=== PATIENT | female | born 1970 | race Caucasian/White ===

== ENCOUNTER 2025-03-25 19:50 | Emergency (ER) | payer OTHER ==
[~2025-03-25] VITALS: Ht 162.6 cm; Wt 70.3 kg
[2025-03-25] MEDS ORDERED: ONDA4TAB11 PO (20:53)
[2025-03-25 21:05] VITALS: BP 151/79; TEMP 98.8; O2SAT 98
== END 2025-03-25 21:05 | disposition home or self-care (01) ==
LOC: ER 20:14
DX: I10 Essential (primary) hypertension (principal); R11.2 Nausea with vomiting, unspecified; R07.89 Other chest pain; R20.2 Paresthesia of skin; F41.9 Anxiety disorder, unspecified